=== PATIENT | male | born 1940 | race Caucasian/White ===

== ENCOUNTER 2016-06-17 15:28 | Emergency (ER) | payer MEDICARE, MEDICAID ==
--- NOTE | 2016-06-17 15:52 | Emergency Department Record ---
History of Present Illness - General Chief Complaint: Chest Pain Stated Complaint: CHEST PAIN Time Seen by Provider: 06/17/16 15:40 Source: Patient Mode of Arrival: Ambulatory Limitations: No limitations - History of Present Illness Initial Comments: The patient is here due to chest discomfort off and on for 3 weeks. The pain is in the anterior chest and lasts seconds to minutes. It sometimes radiates to his ribs. He denies any SOB, ANNAMARIE, sweating, or nausea with the pain. He also denies that the pain comes on or is worsened with any exertion. He states it mainly comes and goes at rest. He has been taking Tylenol for the pain with some relief. Presently he denies any pain or discomfort. The patient states he called his PCP for an appointment but when he told them it was chest related he was told to go directly to the ER. MD Complaint: Chest pain Onset/Timin -: Week(s) Onset: During rest Pain Location: Substernal Pain Radiation: Abdomen Severity: Mild Severity scale (1-10): 2 Quality: Other Improves With: Nothing Worsens With: Nothing Treatments Prior to Arrival: None, Other - Related Data Home Medications Medication Instructions Recorded Confirmed Last Taken Acetaminophen [Tylenol Extra 1,000 mg PO DAILY 08/29/14 08/29/14 06/17/16 Strength] Lansoprazole [Prevacid] 15 mg PO DAILY 08/29/14 08/29/14 06/17/16 Allergies Allergy/AdvReac Type Severity Reaction Status Date / Time ciprofloxacin Allergy Severe HIVES Unverified 11/28/15 12:58 penicillin Allergy HIVES Unverified 12/27/14 09:48 Sulfa (Sulfonamide Allergy HIVES Unverified 12/27/14 09:48 Antibiotics) Travel Screening - Travel/Exposure Within Last 30 Days Have you traveled within the last 30 days?: No - Travel/Exposure Within Last Year Have you traveled outside the [place] in the last year?: No - Additonal Travel Details Have you been exposed to anyone with a communicable illness?: No Review of Systems Constitutional: Denies: Chills, Fever Eyes: Denies: Eye discharge ENT: Denies: Congestion Respiratory: Denies: Cough, Dyspnea Cardiovascular: Denies: Arrhythmia Past Medical History - SOCIAL HISTORY Smoking Status: Light tobacco smoker (<10/day) Alcohol Use: None Drug Use: None - RESPIRATORY Hx Respiratory Disorders: Yes Hx Pneumonia: Yes (years ago) - CARDIOVASCULAR Hx Cardio Disorders: Yes Hx Chest Pain: Yes (last time "couple days ago"- TOLD he has "arthritis in back "-pain went away) - NEURO Hx Neuro Disorders: Yes Hx Headaches: Yes - GI Hx GI Disorders: Yes Hx Reflux: Yes (on prevacid) Hx Ulcer: Yes (on prevacid) - Hx Genitourinary Disorders: Yes Hx Prostate Problems: Yes (recent bx-denies problems) - ENDOCRINE Hx Endocrine Disorders: No - MUSCULOSKELETAL Hx Musculoskeletal Disorders: Yes Hx Arthritis: Yes (in back & chest) - PSYCH Hx Psych Problems: No Comment:: "Nervous breakdown 15-20 yrs ago" - HEMATOLOGY/ONCOLOGY Hx Hematology/Oncology Disorders: No Family Medical History Any Significant Family History?: No Physical Exam - General General Appearance: Alert, Oriented x3, Cooperative, No acute distress - Head Head exam: Atraumatic, Normocephalic, Normal inspection - Eye Eye exam: Normal appearance, PERRL Pupils: Normal accommodation - ENT Throat exam: Normal inspection. negative: Tonsillar erythema, Tonsillar exudate - Neck Neck exam: Normal inspection, Full ROM. negative: Tenderness - Respiratory Respiratory exam: Normal lung sounds bilaterally. negative: Chest wall tenderness, Respiratory distress - Cardiovascular Cardiovascular Exam: Regular rate, Normal rhythm, Normal heart sounds - GI/Abdominal GI/Abdominal exam: Soft, Normal bowel sounds. negative: Tenderness - Extremities Extremities exam: Normal inspection, Full ROM, Normal capillary refill. negative: Tenderness - Neurological Neurological exam: Alert. negative: Motor sensory deficit Course Vital Signs 06/17/16 15:35 Temperature 99.3 F Pulse Rate [ 86 Pulse Ox Probe] Respiratory 18 Rate Blood Pressure 140/62 [Left Arm] Pulse Ox 96 - Reevaluation(s) Reevaluation #1: The patient is doing well. He denies any pain or discomfort. I did explain to him that his workup is negative and that the safest course of action is for him to stay in the hospital to make sure his heart is OK. The patient is refusing to stay and take our advice. I then did explain to him that by leaving he will be accepting the risks of what could occur if the pain is his heart. He could leave and have an NM, stroke, become disabled and could . The patient understands and accepts the risks. He presently has proper decision making capacity and understands that we cannot be held liable for any bad outcomes that occur due to NOT admitting him to the hospital. 06/17/16 17:31 Medical Decision Making - Data Complexity MDM Data: Labs Ordered and/or Reviewed, X-Ray Ordered and/or Reviewed, EKG Ordered and/or Reviewed - Lab Data Result diagrams: 06/17/16 16:10 06/17/16 16:10 - EKG Data -: EKG Interpreted by Me EKG: No Acute Changes, Normal EKG - Radiology Data Radiology results: Report reviewed (CXR: No acute process per Rad.) Disposition Disposition: Discharge Clinical Impression: Chest pain, atypical Disposition: Home, Self-Care Condition: (1) Good Instructions: Chest Pain (ED) Additional Instructions: Please continue the Tylenol if needed. Please see your PCP for recheck next week. Return to the ER for any increased pain, fever, trouble breathing or sweating. Forms: Patient Portal Access Time of Disposition: 17:35
[2016-06-17 16:25] LABS: BASO % 0.2 % (0-6); EOS % 1.9 % (0-6); GRAN % 62.4 % (47-80); HEMATOCRIT 36.9 % (42.0-52.0); HEMOGLOBIN 12.2 gm/dl (14.0-18.0); LYMPH % 25.2 % (16-45); MEAN CELL VOLUME 96.1 fl (81-97); MEAN CORPUSCULAR HEMOGLOBIN 31.7 pg (27-33); MEAN CORPUSCULAR HGB CONC 33.1 g/dl (32-36); MEAN PLATELET VOLUME 9.9 fl (7.4-10.4); MONO % 10.3 % (0-9); PLATELET COUNT 212 K/uL (130-400); RED BLOOD COUNT 3.84 M/uL (4.40-5.70); RED CELL DISTRIBUTION WIDTH 14.4 % (11.5-14.5); WHITE BLOOD COUNT W/O DIFF 8.6 K/uL (4.2-12.2)
[2016-06-17 16:48] LABS: ANION GAP 6.8 (7-16); BLOOD UREA NITROGEN 12 mg/dL (9-20); CARBON DIOXIDE 27.2 mmol/L (22-30); EST GLOMERULAR FILTRATION RATE > 60 ml/min; GLUCOSE,RANDOM 94 mg/dL (70-110)
[2016-06-17 16:51] LABS: CREATINE PHOSPHOKINASE 50 U/L (55-170)
[2016-06-17 17:00] LABS: CKMB 2.8 ug/L (0-6); TROPONIN I < 0.012 ng/mL (0.00-0.034)
== END 2016-06-17 17:44 | disposition home or self-care (01) ==
LOC: ER 15:28
DX: R07.89 Other chest pain (principal); F17.210 Nicotine dependence, cigarettes, uncomplicated
CPT/HCPCS: 71020; 80048; 82550; 82553; 84484; 85025; 93005; 93010; 99284

== ENCOUNTER 2016-09-16 09:02 | Day surgery (SDC) | payer MEDICARE ==
[~2016-09-16 09:02] MED LIST: CIPROFLOXACIN HCL 0.0015 GM, PHENYLEPHRINE HCL 0.0125 GM, KETOROLAC TROMETHAMINE 0.0006... MC ONE
[2016-09-16] MEDS ORDERED: LIDOCAINE 2% MDV (20MG/ML) 20ML VIAL IV ONE ×2 (14:40→14:59)
[2016-09-16] MEDS ORDERED: PROPOFOL 10 MG/ML VIAL IV ONE (14:40)
[2016-09-16] MEDS ORDERED: ALFENTANIL HCL 500 MCG/1ML, 2ML AMP IV ONE (14:40)
[2016-09-16] MEDS ORDERED: LIDOCAINE 1% MPF 100MG/10ML STERILE-PAK AMPULE IV ONE (14:59)
[2016-09-16] MEDS ORDERED: TETRACAINE HCL 0.5% OPTH 2ML SOLU OPTH ONE (14:59)
[2016-09-16] MEDS ORDERED: NEOMYCIN/POLY./DEXAM OPTH OINT OPTH ONE (14:59)
[2016-09-16] MEDS ORDERED: EPINEPHRINE 1 MG/ML AMPUL SQ ONE (14:59)
[2016-09-16] MEDS ORDERED: TETRACAINE HCL 0.5% 15 ML OPTH BTL OPTH ONE (14:59)
--- NOTE | 2016-09-18 01:17 | Operative Note ---
DATE OF PROCEDURE: 09/16/16. PREOPERATIVE DIAGNOSIS: Nuclear sclerotic cataract, right eye. POSTOPERATIVE DIAGNOSIS: Nuclear sclerotic cataract, right eye. OPERATION: Phacoemulsification of cataractous lens with implantation of intraocular lens. LENS IMPLANT USED: [employer] Model PCB00 + 25.0 diopters. COMPLICATIONS: None. PROCEDURE IN DETAIL: Following a retrobulbar and facial block, the patient was prepped and draped in the usual fashion for eye surgery. A lid speculum was placed in the right eye after which a 2.4 mm tunnel wound was placed at the temporal limbus and dissected into clear cornea. A paracentesis was placed at 2 o'clock hours to the left and right of the initial incision and the chamber deepened with Viscoelastic. The keratome was then used to enter the anterior chamber after which the continuous circular capsulorrhexis was accomplished without difficulty using a bent needle and a Utrata forceps. Hydrodissection and hydrodelineation of the lens was performed after which the nucleus of the lens was removed using the Phaco handpiece in the [id number] technique. The residual cortical material was irrigated and aspirated from the eye after which the bag and chamber were re-examined. The bag was re-inflated with Viscoelastic and the intraocular lens injected into the capsular bag where it centered well. The Viscoelastic was then copiously irrigated and aspirated from the eye after which the temporal tunnel wound and paracentesis were hydrated and the wounds were examined. They were noted to be watertight. The lid speculum was removed from the eye and the eye patched and shielded. The patient was transferred to the recovery room in satisfactory condition and given an appointment to be reexamined in the clinic later today or as directed by Dr. Ni. JOB NUMBER: [id number] [facility] [place]
== END 2016-09-16 11:41 | disposition home or self-care (01) ==
LOC: SUR 09:02
PROVIDERS: ATTEND Ophthalmology
DX: H25.11 Age-related nuclear cataract, right eye (principal)
CPT/HCPCS: J0171; J3490